=== PATIENT | female | born 1940 | race Caucasian/White ===

== ENCOUNTER 2017-05-02 12:26 | Observation (INO) | payer MEDICARE ==
[~2017-05-02] VITALS: Ht 167.6 cm; Wt 96.9 kg
[~2017-05-02 12:26] MED LIST: BUPIVACAINE/PF 0.25% ONE; EPINEPHRINE 1 MG/ML, 1ML ONE; NEOMY/POLYMYXIN B GU IRR. 1 ML IRRIG ONE
[2017-05-02] MEDS ORDERED: LACTATED RINGERS 1,000 ML IV SCH (13:05)
[2017-05-02] MEDS ORDERED: OLME20TA19 PO (13:08)
[2017-05-02 13:13] VITALS: BP 170/76
[2017-05-02] MEDS ORDERED: LIDOCAINE 1%, 2ML SQ PRN (13:30)
[2017-05-02 13:50] LABS: ALBUMIN 3.6 g/dL (3.4-5.0); ANION GAP 10 mmol/L (5-15); CALCIUM 9.1 mg/dL (8.5-10.1); CHLORIDE 108 mmol/L (98-107)
[2017-05-02 13:54] LABS: ALANINE AMINOTRANSFERASE 25 U/L (12-78); ALKALINE PHOSPHATASE 142 U/L (45-117); BILIRUBIN,TOTAL 0.4 mg/dL (0.2-1.0); CREATININE 0.85 mg/dL (0.55-1.02); TOTAL PROTEIN 7.1 g/dL (6.4-8.2)
[2017-05-02] MEDS ORDERED: MIDAZOLAM 1 MG/ML, 2ML ONE (14:10)
[2017-05-02] MEDS ORDERED: CEFAZOLIN 1,000 MG ONE ×2 (14:43)
[2017-05-02] MEDS ORDERED: ONDANSETRON 2MG/ML, 2ML IVPush PRN ×2 (15:30→18:30)
[2017-05-02] MEDS ORDERED: FENTANYL PF 100 MCG/2ML IV PRN (15:30)
[2017-05-02] MEDS ORDERED: OXYcodone 5 MG/5 ML ORAL.SOL UDC ONE (16:16)
[2017-05-02] MEDS ORDERED: OXYcodone 5 MG/5 ML ORAL.SOL UDC PO PRN (16:30)
[2017-05-02] MEDS ORDERED: OXYcodone/APAP 5/325MG TABLET ONE (17:18)
[2017-05-02] MEDS: OXYcodone/APAP 5/325MG TABLET PO PRN ×2 (17:18→21:56)
[2017-05-02] MEDS ORDERED: IBUPROFEN 600 MG TABLET ONE (17:18)
[2017-05-02] MEDS ORDERED: KETOROLAC 30 MG/1 ML IVPush PRN (17:30)
[2017-05-02] MEDS ORDERED: IBUPROFEN 600 MG TABLET PO PRN (17:30)
[2017-05-02] MEDS ORDERED: ONDANSETRON 2MG/ML, 2ML ONE (17:59)
[2017-05-02 20:21] VITALS: BP 136/46
[2017-05-02 23:50] VITALS: BP 95/45
[2017-05-03] MEDS ORDERED: HYDROmorphone 1 MG/ML, 1ML IV PRN (00:30)
[2017-05-03] MEDS ORDERED: HYDROcodone/APAP 7.5-325MG/15ML UDC PO PRN (00:30)
[2017-05-03 03:18] VITALS: BP 134/73
[2017-05-03 07:21] VITALS: BP 118/74
== END 2017-05-03 09:40 | disposition home or self-care (01) ==
LOC: OUT 12:26 → 4NOR 19:54 → OUT 23:48 → 4NOR 23:49 → DCLOUNGE 05-03 09:35
PROVIDERS: ADMIT Obstetrics & Gynecology Female Pelvic Medicine and Reconstructive Surgery; ATTEND Obstetrics & Gynecology Female Pelvic Medicine and Reconstructive Surgery
DX: N39.46 Mixed incontinence (principal); N81.89 Other female genital prolapse; N81.5 Vaginal enterocele; N81.6 Rectocele; N99.3 Prolapse of vaginal vault after hysterectomy; N32.81 Overactive bladder; I10 Essential (primary) hypertension; Z78.0 Asymptomatic menopausal state
CPT/HCPCS: 36415; 57265; 57282; 57288; 80053; 93005; C1771; G0378; J0171; J0690; J2250; J2405; J3490; J7120

== ENCOUNTER 2018-09-21 08:20 | Emergency (ER) | payer MEDICARE ==
[~2018-09-21] VITALS: Ht 165.1 cm; Wt 95.4 kg
[~2018-09-21 08:20] MED LIST changes: -BUPIVACAINE/PF 0.25% ONE; -EPINEPHRINE 1 MG/ML, 1ML ONE; -NEOMY/POLYMYXIN B GU IRR. 1 ML IRRIG ONE; +OLME20TA17 PO
[2018-09-21 08:24] VITALS: BP 147/98
--- NOTE | 2018-09-21 08:55 | NUR ---
pt to room from lobby. sitting up on gurney awake & calm, responds approp to staff, comfort measures provided, call light within reach.
--- NOTE | 2018-09-21 10:14 | NUR ---
Patient given discharge instructions and Rx, they have confirmed that they understand the instructions. Patient ambulatory with steady gait.
== END 2018-09-21 10:14 | disposition home or self-care (01) ==
LOC: ED 10:07
DX: S16.1XXA Strain of muscle, fascia and tendon at neck level, initial encounter (principal); S13.9XXA Sprain of joints and ligaments of unspecified parts of neck, initial encounter; X58.XXXA Exposure to other specified factors, initial encounter; Y93.89 Activity, other specified; Y92.89 Other specified places as the place of occurrence of the external cause; Y99.8 Other external cause status
CPT/HCPCS: 72125; 99284

== ENCOUNTER 2018-11-15 03:10 | Emergency (ER) | payer MEDICARE ==
[~2018-11-15] VITALS: Ht 165.1 cm; Wt 95.3 kg
[2018-11-15 04:28] VITALS: BP 154/78
== END 2018-11-15 04:30 | disposition home or self-care (01) ==
LOC: ED 04:25
DX: S39.011A Strain of muscle, fascia and tendon of abdomen, initial encounter (principal); X58.XXXA Exposure to other specified factors, initial encounter; Y93.89 Activity, other specified; Y92.89 Other specified places as the place of occurrence of the external cause; Y99.8 Other external cause status
CPT/HCPCS: 99282

== ENCOUNTER 2018-11-16 08:45 | Emergency (ER) | payer MEDICARE ==
[~2018-11-16] VITALS: Ht 167.6 cm; Wt 95.2 kg
[2018-11-16 09:59] VITALS: BP 168/67
== END 2018-11-16 11:37 | disposition home or self-care (01) ==
LOC: ED 09:29
DX: K57.32 Diverticulitis of large intestine without perforation or abscess without bleeding (principal)
CPT/HCPCS: 36415; 74177; 80053; 81001; 83690; 85025; 87086; 99284; Q9967; 87077